=== PATIENT | female | born 1935 | race Caucasian/White ===

== ENCOUNTER → 2017-04-27 | Outpatient (CLI) | payer OTHER ==
[~2017-04-27] MED LIST: ASPI81CH6 CHEW; CHOL10008 PO; CLIN1CAP6 PO; COMMODE 3-IN-11 MIS; CPMMACHINE; DEXA4TAB PO; DOCU100C15 PO; DOCU1CAP39 PO; HYDR-3288 PO; LORTA5 PO; MAGN400T2 PO; VITA100021 SL; WALKER WHEELS/F1 MIS
== END ==
LOC: CPRE 12:02
PROVIDERS: ATTEND Orthopaedic Surgery Sports Medicine
DX: M17.11 Unilateral primary osteoarthritis, right knee (principal)

== ENCOUNTER 2017-05-07 05:25 | Inpatient (IN) | payer OTHER, MEDICARE ==
[~2017-05-07] VITALS: Ht 162.6 cm; Wt 86.4 kg
[~2017-05-07 05:25] MED LIST changes: -ASPI81CH6 CHEW; -CLIN1CAP6 PO; -COMMODE 3-IN-11 MIS; -CPMMACHINE; -DEXA4TAB PO; -DOCU100C15 PO; -DOCU1CAP39 PO; -HYDR-3288 PO; -LORTA5 PO; -WALKER WHEELS/F1 MIS
[2017-05-07] MEDS ORDERED: GENTAMICIN SULFATE 80 MG/2 ML VIAL ONE (06:10)
[2017-05-07] MEDS ORDERED: DEXAMETHASONE SOD PHOS 20 MG/5 ML VIAL ONE (06:22)
[2017-05-07] MEDS ORDERED: METOPROLOL TARTRATE 25 MG TAB PO PRN (06:30)
[2017-05-07] MEDS ORDERED: POVIDONE IODINE 7.5% SCRUB 118 ML BOTTLE TOPICAL SCH (06:30)
[2017-05-07] MEDS ORDERED: CHLORHEXIDINE GLUCONATE 4% SOLN 120 ML BTL TOPICAL SCH (06:30)
[2017-05-07] MEDS ORDERED: SODIUM CHLORID 0.9% 500 ML IV PRN (06:30)
[2017-05-07] MEDS ORDERED: CHLORHEXIDINE GLUCONATE 2 % 1 PACK (2 CLOTHS) TOPICAL PRN (06:30)
[2017-05-07] MEDS ORDERED: SODIUM CHLORIDE 0.9% IV SCH (06:30)
[2017-05-07] MEDS ORDERED: ROPIVACAINE PERI-ARTICULAR INJECTION. P-ARTICULR SCH ×5 (06:30)
[2017-05-07] MEDS ORDERED: POVIDONE IODINE 5% (ANTISEPSIS KIT) 4 APPLICATIONS EACH NARE PRN (06:30)
[2017-05-07] MEDS ORDERED: ceFAZolin 2 GM PREMIX 50 ML IV SCH (06:30)
[2017-05-07] MEDS ORDERED: TRANEXAMIC PERI-ARTICULAR 3,000 MG/NS 100 ML P-ARTICULR SCH ×2 (06:30)
[2017-05-07] MEDS ORDERED: TRANEXAMIC ACID IV SCH (06:30)
[2017-05-07] MEDS ORDERED: VANCOMYCIN 1000 MG/NS 250 ML (for <70 kg) IV SCH ×2 (06:30)
[2017-05-07] MEDS ORDERED: DEXAMETHASONE SOD PHOS 20 MG/5 ML VIAL IV PUSH SCH (06:30)
[2017-05-07] MEDS ORDERED: LACTATED RINGER'S 1000 ML IV PRN (06:30)
[2017-05-07] MEDS ORDERED: BUPIVACAINE LIPOSOME PF 1.3% 20 ML VIAL ONE (06:42)
[2017-05-07] MEDS ORDERED: ASPI81CH6 CHEW (06:51)
[2017-05-07] MEDS ORDERED: HYDR-3288 PO (06:51)
[2017-05-07] MEDS ORDERED: NALOXONE HCL 0.4 MG/ML AMP IV PUSH PRN (07:00)
[2017-05-07] MEDS ORDERED: ONDANSETRON HCL 4 MG/2 ML VIAL IVP PRN (07:00)
[2017-05-07] MEDS ORDERED: ACETAMINOPHEN/HYDROcodone 325 MG/7.5 MG TAB PO PRN (07:00)
[2017-05-07] MEDS ORDERED: MORPHINE SULFATE 4 MG/ML INJ IV PUSH PRN (07:00)
[2017-05-07] MEDS ORDERED: diphenhydrAMINE HCL 50 MG/ML VIAL IV PUSH PRN (07:00)
[2017-05-07] MEDS ORDERED: Post-op Orders (for Pharmacy) XX ONE (07:00)
[2017-05-07] MEDS ORDERED: BISACODYL 10 MG SUPP RECTAL PRN (07:00)
[2017-05-07] MEDS ORDERED: DO NOT ADM ANY ANTICOAGULANT DRUGS PRN (09:15)
[2017-05-07] MEDS: SODIUM CHLOR 0.9% 1000 ML INJ 1,000 ML IV SCH (09:30)
--- NOTE | 2017-05-07 09:41 | RADRPT ---
EXAM DATE/TIME: 05/07/2017 09:12 [place] COMPARISON: No previous studies available for comparison. INDICATIONS : Post op right total knee. MEDICAL HISTORY : None. SURGICAL HISTORY : None. ENCOUNTER: Initial ACUITY: 1 day PAIN SCORE: Non-responsive. LOCATION: Right Knee FINDINGS: There is total knee prosthesis in place well-seated with superficial stabilization device CONCLUSION: Total the prosthesis well seated Frandy Sherman MD on May 07, 2017 at 9:38 Board Certified Radiologist. This report was verified electronically.
[2017-05-07] MEDS ORDERED: *ONDANSETRON 4 MG VIAL PERIprocedural Use ONLY ONE (09:47)
--- NOTE | 2017-05-07 10:49 | MP ---
cc: PAULINA TURNER M.D. DATE OF SURGERY 05/07/2017 PREOPERATIVE DIAGNOSIS Right knee osteoarthritis. POSTOPERATIVE DIAGNOSES Right knee osteoarthritis. PROCEDURE Right total knee arthroplasty. SURGEON Dr. Paulina Turner. LLAMA FARMER CANELO Rodgers. ANESTHESIA General with a femoral nerve adductor canal block. ESTIMATED BLOOD LOSS 100 cc. COMPLICATIONS None. IMPLANTS USED DePuy Attune, size 6 posterior stabilized femoral component, size 5 rotating platform tibial baseplate, size 12 mm polyethylene tibial insert, size 35 patella. JUSTIFICATION The patient is a 81-year-old female with a history of severe end-stage osteoarthritis involving the right knee. She has severe disabling pain with standing and walking ambulation, weightbearing activities and severe pain at rest. She has failed greater than three months of nonoperative conservative treatment to include medication therapy, injections, ambulatory assisted aids, home exercise program, activity modification and weight loss. X-rays of the right knee reveal severe end-stage osteoarthritis with [id number] joint space narrowing, subchondral sclerosis, subchondral cysts, osteophyte formation with varus deformity. The patient was counseled as to the risks, benefits and alternatives of a total knee arthroplasty. The risks were discussed which include but are not limited to anesthesia, bleeding, infection, damage to nerves and blood vessels, pain, stiffness, failure of components, blood clots, pulmonary embolism and even . The patient's pain is severe. She favored the benefits over the risks. She did wish to proceed with surgery. PROCEDURE A written consent was obtained. The patient was identified, taken to the operating room and placed supine on the operating table. General anesthesia was administered as well as two grams of IV Ancef and one gram of IV vancomycin. She did receive an ultrasound-guided femoral nerve adductor canal block by the anesthesiologist. A well-padded tourniquet was placed on the right thigh. The right lower extremity was prepped and draped using isopropyl alcohol, Hibiclens solution and ChloraPrep solution. After a timeout was performed an Esmarch bandage was used to exsanguinate the right lower extremity and the tourniquet was inflated to 250 mmHg. A longitudinal incision was made over the anterior aspect of the right knee. A medial parapatellar arthrotomy was performed. The patella was everted. A patellar resection guide was used to resect 9 mm of patella. The size 35 mm guide was placed. Three drill holes were placed and a 35 mm patella trial fit well. Attention was turned to the femur where an intramedullary guide was placed. The distal femoral guide was set to remove 10 mm of distal femur 5 degrees off the anatomic valgus axis alignment. An oscillating saw was used to perform the distal femoral cut. Attention was turned to the tibia where an extramedullary tibial guide was set to remove 5 mm off the lowest portion of the medial tibial plateau. The tibial guide was pinned in place and the tibial cut was performed. A 5 mm spacer block showed full extension. Attention was turned back to the femur where the AP sizing block measured a size 6. The anterior reference 3 degree external rotation guide was used to pin a size [address] The anterior, posterior and chamfer cuts were performed. A size 6 PCL box guide was pinned in place and the PCL was box cut with an oscillating saw. The medial and lateral meniscus remnants were removed as well as bone and soft tissue debris from the posterior portion of the knee. A size 5 tibia baseplate was pinned in place and the tibia was drilled and punched. The trial components were evaluated and final components cemented in place. With the components as listed the leg could achieve full extension to 0 degrees and flexion to 140. No evidence of tibial lift-off. Varus-valgus balance appeared appropriate and symmetric and the patella was noted to track centrally. The tourniquet was deflated. Bovie cautery was used for hemostasis. The surgical wound was thoroughly irrigated with sterile saline pulse lavage antibiotic-impregnated solution. The arthrotomy incision was closed with #1 Vicryl suture, the subcutaneous layer with 2-0 Vicryl suture, and the skin was closed with Dermabond. Sterile dressing was applied. The patient tolerated the procedure well with no intraoperative complications noted. CANELO Rodgers was present during the entire procedure to include patient positioning and the procedure itself. The medical necessity of an property management assistant was indicated in this case due to the complexity of the procedure. He assisted with appropriate manipulation of the leg and also retraction of muscle, tendon, bone and neurovascular structures. He assisted with preparation of bone and also implantation of the prosthetic replacement. MD REHANA Palmer/DODIE /8:20 AM /10:29 AM
[2017-05-07] MEDS ORDERED: SODIUM CHLORIDE 0.9% 20 ML VIAL IV ONE (12:00)
[2017-05-07] MEDS ORDERED: PROPOFOL 200 MG/20 ML AMP IV ONE (12:00)
[2017-05-07] MEDS ORDERED: GLYCOPYRROLATE 1 MG/5 ML SYRINGE IV PUSH ONE (12:00)
[2017-05-07] MEDS ORDERED: LIDOCAINE HCL 1% PF 5 ML SYRINGE OTHER ONE (12:00)
[2017-05-07] MEDS ORDERED: NEOSTIGMINE 5 MG/5 ML SYRINGE IV PUSH ONE (12:00)
[2017-05-07] MEDS ORDERED: DEXAMETHASONE SOD PHOS 4 MG/ML VIAL IV ONE (12:00)
[2017-05-07] MEDS ORDERED: ONDANSETRON HCL 4 MG/2 ML VIAL IV PUSH ONE (12:00)
[2017-05-07] MEDS ORDERED: ROCURONIUM INJ 50 MG/5 ML SYRINGE IV PUSH ONE (12:00)
--- NOTE | 2017-05-07 12:45 | PD.CONS ---
HPI Service [facility] Consult Requested By Dr. Camron Calabrese Reason for Consult Medical management Primary Care Physician Howard Chatman MD Diagnoses: History of Present Illness This is a 81 year-old female with right knee pain affecting her activities of daily living secondary to osteoarthritis. Underwent arthroplasty by Dr. Camron Calabrese who requested consultation to evaluate and manage medical conditions. At this time, she has no pain after receiving nerve block. Anesthesia records reviewed she was hemodynamically stable. Received 1200 mL crystalloid, EBL 50 mL and urine output 150 mL. She has a Bernardo catheter. Patient has chronic left lower extremity edema not related to DVT. States she was recently treated for UTI no UTI symptoms. All other systems reviewed negative. Discussed with ANIMAL CRUELTY INVESTIGATORtelecommunications repairer of Systems Except as stated in HPI: all other systems reviewed are Neg Past Family Social History Allergies: Coded Allergies: No Known Allergies (Unverified Allergy, Unknown, 04/27/17) Past Medical History As previously mentioned Past Surgical History Cataract surgery Reported Medications Reported Meds & Active Scripts Active [place] (Hydrocodone-Acetaminophen) 7.5-325 mg Tab 1-2 Tab PO Q6H PRN Aspirin Low Dose (Aspirin) 81 Mg Chew 81 Mg CHEW BID 30 Days Reported Vitamin D3 (Cholecalciferol) 1,000 Unit Cap 1,000 Units PO DAILY Vitamin B-12 (Cyanocobalamin) 1,000 Mcg Subl 1,000 Mcg SL DAILY Magnesium Oxide 400 Mg Tab 400 Mg PO DAILY Family History Heart disease and lung cancer Social History Does not smoke or drink Physical Exam Vital Signs Vital Signs Date Time Temp Pulse Resp B/P (MAP) Pulse Ox O2 Delivery O2 Flow Rate FiO2 05/07/17 10:00 97.9 53 18 141/58 (85) 99 Nasal Cannula 2 05/07/17 09:45 51 15 135/60 (85) 99 Nasal Cannula 2 05/07/17 09:30 50 15 129/62 (84) 99 Nasal Cannula 2 05/07/17 09:15 47 16 131/63 (85) 99 Nasal Cannula 2 05/07/17 09:00 50 14 132/61 (84) 96 Nasal Cannula 4 05/07/17 08:58 97.7 49 14 129/62 (84) 96 Nasal Cannula 4 05/07/17 06:17 97.5 76 18 134/54 (80) 98 Physical Exam GENERAL: This is a well-nourished, well-developed patient, in no apparent distress. SKIN: No rashes, ecchymoses or lesions. Cool and dry. HEAD: Atraumatic. Normocephalic. No temporal or scalp tenderness. EYES: Pupils equal round and reactive. Extraocular motions intact. No scleral icterus. No injection or drainage. ENT: Nose without bleeding, purulent drainage or septal hematoma. Throat without erythema, tonsillar hypertrophy or exudate. Uvula midline. Airway patent. NECK: Trachea midline. No JVD or lymphadenopathy. Supple, nontender, no meningeal signs. CARDIOVASCULAR: Regular rate and rhythm without murmurs, gallops, or rubs. RESPIRATORY: Clear to auscultation. Breath sounds equal bilaterally. No wheezes , rales, or rhonchi. GASTROINTESTINAL: Abdomen soft, non-tender, nondistended. No guarding. MUSCULOSKELETAL: Extremities without clubbing, cyanosis, or edema. Right lower extremity on a CPM and left lower extremity with mild pitting edema covered with SCD and teds NEUROLOGICAL: Awake and alert. Cranial nerves II through XII intact. Motor and sensory grossly within normal limits. Five out of 5 muscle strength in all muscle groups. Normal speech. Laboratory Outpatient records reviewed unremarkable CBC, BMP and INR. CRP of 9.6. Urinalysis with WBC of 11:30 urine culture with 25,000 colonies. Chest x-ray with negative for acute cardiopulmonary disease. EKG with sinus bradycardia Assessment and Plan Assessment and Plan This is a 81 year-old female with right knee pain affecting her activities of daily living secondary to osteoarthritis. Underwent arthroplasty by Dr. Camron Calabrese who requested consultation to evaluate and manage medical conditions. At this time, she has no pain after receiving nerve block. Anesthesia records reviewed she was hemodynamically stable. Received 1200 mL crystalloid, EBL 50 mL and urine output 150 mL. She has a Bernardo catheter. Continue postoperative care with pain management with Lortab and IV morphine, DVT prophylaxis with Lovenox, physical therapy and wound care. Discontinue Bernardo catheter as soon as possible . Check CBC to monitor for anemia secondary to acute blood loss Patient has chronic left lower extremity edema not related to DVT. Recently treated for UTI no UTI symptoms. Discussed Condition With Patient and Harry Velázquez MD May 07, 2017 12:45
[2017-05-07 14:00] VITALS: BP 144/66; PULSE 67; RESP 18; TEMP 95.7; O2SAT 97
[2017-05-07 20:00] VITALS: BP 148/59; PULSE 70; RESP 16; TEMP 98.3; O2SAT 95
[2017-05-07] MEDS ORDERED: ZOLPIDEM TARTRATE 5 MG TAB PO PRN (21:00)
[2017-05-07] MEDS: ENOXAPARIN SODIUM 30 MG/0.3 ML SYRINGE SQ SCH (21:10)
[2017-05-07 23:59] VITALS: BP 139/82; PULSE 72; RESP 16; TEMP 97.7; O2SAT 94
[2017-05-08] MEDS: SODIUM CHLOR 0.9% 1000 ML INJ 1,000 ML IV SCH ×3 (03:44→22:48)
[2017-05-08 05:00] VITALS: BP 140/63; PULSE 73; RESP 18; TEMP 96.7; O2SAT 96
[2017-05-08] MEDS: ACETAMINOPHEN/HYDROcodone 325 MG/7.5 MG TAB PO PRN ×2 (05:32→14:39)
[2017-05-08 07:36] LABS: HEMATOCRIT 29.4 % (35.0-46.0); HEMOGLOBIN 9.8 GM/DL (11.6-15.3); MEAN CELL VOLUME 90.4 FL (80.0-100.0); MEAN CORPUSCULAR HEMOGLOBIN 30.2 PG (27.0-34.0); MEAN CORPUSCULAR HGB CONC 33.4 % (32.0-36.0); MEAN PLATELET VOLUME 8.2 FL (7.0-11.0); PLATELET COUNT 229 TH/MM3 (150-450); RED BLOOD COUNT 3.25 MIL/MM3 (4.00-5.30); RED CELL DISTRIBUTION WIDTH 15.1 % (11.6-17.2); WHITE BLOOD COUNT 12.8 TH/MM3 (4.0-11.0)
[2017-05-08 07:39] VITALS: BP 129/55; PULSE 64; RESP 18; TEMP 96.2; O2SAT 97
[2017-05-08 07:55] LABS: BICARBONATE 25.7 MEQ/L (21.0-32.0); CALCIUM 8.6 MG/DL (8.5-10.1); CREATININE 0.33 MG/DL (0.50-1.00)
--- NOTE | 2017-05-08 08:37 | PD.ORT.PN ---
Subjective Post Op Day #: 1 Subjective Remarks pain controlled. doing well. Objective Vitals Vital Signs Date Time Temp Pulse Resp B/P (MAP) Pulse Ox O2 Delivery O2 Flow Rate FiO2 05/08/17 07:39 96.2 64 18 129/55 (79) 97 05/08/17 05:00 96.7 73 18 140/63 (88) 96 05/07/17 23:59 97.7 72 16 139/82 (101) 94 05/07/17 21:15 Room Air 05/07/17 20:00 98.3 70 16 148/59 (88) 95 05/07/17 14:00 95.7 67 18 144/66 (92) 97 05/07/17 13:52 Nasal Cannula 2.00 05/07/17 13:00 60 16 132/60 (84) 100 Nasal Cannula 2 05/07/17 12:00 58 18 140/60 (86) 99 Nasal Cannula 2 05/07/17 11:00 55 18 142/60 (87) 99 Nasal Cannula 2 05/07/17 10:00 97.9 53 18 141/58 (85) 99 Nasal Cannula 2 05/07/17 09:45 51 15 135/60 (85) 99 Nasal Cannula 2 05/07/17 09:30 50 15 129/62 (84) 99 Nasal Cannula 2 05/07/17 09:15 47 16 131/63 (85) 99 Nasal Cannula 2 05/07/17 09:00 50 14 132/61 (84) 96 Nasal Cannula 4 05/07/17 08:58 97.7 49 14 129/62 (84) 96 Nasal Cannula 4 I/O 05/07/17 05/07/17 05/07/17 05/08/17 05/08/17 05/08/17 07:00 15:00 23:00 07:00 15:00 23:00 Intake Total 1420 ml 240 ml 240 ml Output Total 3475 ml 700 ml 1725 ml Balance -2055 ml -460 ml -1485 ml Intake Oral 120 ml 240 ml 240 ml IV Total 1100 ml Other 200 ml Output Urine Total 425 ml 700 ml 1725 ml Estimated Blood Loss 50 ml Other 3000 ml # Bowel Movements 0 Result Diagram: 05/08/17 0620 05/08/17 0620 Objective Remarks in bed, nad dressing c/d/i neg homans nvi Assessment & Plan Ortho Post Op Day #: 1 Problem List: Assessment and Plan s/p R TKA wbat ok to maintain dressing unless saturated lovenox, d/c on asa 81 d/c planning to snf - cleared when authorized by insurance rx in chart f/up dr. stewart 2 weeks Cmaron Banks May 08, 2017 08:37
--- NOTE | 2017-05-08 08:39 | HHI.DCPOC ---
Discharge Care Plan Diagnosis: (1) Primary localized osteoarthrosis, lower leg Your Health Problems Are: Difficulty with ADL Goals to Promote Your Health * To prevent worsening of your condition and complications * To maintain your health at the optimal level Directions to Meet Your Goals Take your medications as prescribed Follow your dietary instruction Follow activity as directed Keep your appointments as scheduled Take your immunizations and boosters as scheduled If your symptoms worsen call your PCP, if no PCP go to Urgent Care Center or Emergency Room Smoking is Dangerous to Your Health. Avoid second hand smoke Call the 24-hour hour crisis hotline for domestic abuse at Camron Banks May 08, 2017 08:39
[2017-05-08] MEDS ORDERED: WALKER WHEELS/F1 MIS (08:41)
[2017-05-08] MEDS ORDERED: CPMMACHINE (08:41)
[2017-05-08] MEDS ORDERED: COMMODE 3-IN-11 MIS (08:41)
--- NOTE | 2017-05-08 11:34 | HHI.PR ---
Subjective Remarks Orthopedics has cleared this patient and patient is medically cleared for discharge today. The status post right total knee and doing well. No complaints expressed from the patient. Objective Vital Signs Date Time Temp Pulse Resp B/P (MAP) Pulse Ox O2 Delivery O2 Flow Rate FiO2 05/08/17 07:39 96.2 64 18 129/55 (79) 97 05/08/17 05:00 96.7 73 18 140/63 (88) 96 05/07/17 23:59 97.7 72 16 139/82 (101) 94 05/07/17 21:15 Room Air 05/07/17 20:00 98.3 70 16 148/59 (88) 95 05/07/17 14:00 95.7 67 18 144/66 (92) 97 05/07/17 13:52 Nasal Cannula 2.00 05/07/17 13:00 60 16 132/60 (84) 100 Nasal Cannula 2 05/07/17 12:00 58 18 140/60 (86) 99 Nasal Cannula 2 I/O 05/07/17 05/07/17 05/07/17 05/08/17 05/08/17 05/08/17 07:00 15:00 23:00 07:00 15:00 23:00 Intake Total 1420 ml 240 ml 240 ml Output Total 3475 ml 700 ml 1725 ml Balance -2055 ml -460 ml -1485 ml Intake Oral 120 ml 240 ml 240 ml IV Total 1100 ml Other 200 ml Output Urine Total 425 ml 700 ml 1725 ml Estimated Blood Loss 50 ml Other 3000 ml # Bowel Movements 0 Result Diagram: 05/08/17 0620 05/08/17 0620 Objective Remarks GENERAL: NAD, A&Ox3 HEAD: Normocephalic. NECK: Supple, trachea midline. No lymphadenopathy. EYES: No scleral icterus. No injection or drainage. CARDIOVASCULAR: Regular rate and rhythm without murmurs, gallops, or rubs. RESPIRATORY: Breath sounds equal bilaterally. No accessory muscle use. GASTROINTESTINAL: Abdomen soft, non-tender, nondistended. MUSCULOSKELETAL: No cyanosis, or edema. Wound at right knee. SKIN: Warm and dry. NEURO: No focal neurological deficitis. A/P Problem List: (1) Primary localized osteoarthrosis, lower leg ICD Code: M17.10 - Unilateral primary osteoarthritis, unspecified knee Assessment and Plan 81-year-old male admitted secondary to osteoarthritis for surgery right knee Status post right knee arthroplasty Doing well postop Orthopedics has cleared this patient for discharge Medically stable for discharge Continue pain treatments Continue PT Follow-up with orthopedics as an outpatient Labs reviewed, hemoglobin stable Discharge planning Medically Clear for discharge today Problem Qualifiers (1) Primary localized osteoarthrosis, lower leg: Qualified Codes: M17.11 - Unilateral primary osteoarthritis, right knee Moise Luna MD May 08, 2017 11:34
[2017-05-08] MEDS ORDERED: DOCU100C15 PO (11:35)
[2017-05-08 11:36] VITALS: BP 120/63; PULSE 70; RESP 18; TEMP 96.1; O2SAT 98
[2017-05-08 15:46] VITALS: BP 116/59; PULSE 75; RESP 18; TEMP 96.5; O2SAT 99
[2017-05-08 18:07] VITALS: O2SAT 99
[2017-05-08 20:00] VITALS: BP 145/68; PULSE 81; RESP 20; TEMP 97.1; O2SAT 96
[2017-05-08] MEDS: MULTIVITAMINS/MINERALS THERAPEUTIC TAB PO SCH (20:32)
[2017-05-08] MEDS: DOCUSATE SODIUM 100 MG CAP PO SCH (20:32)
[2017-05-08] MEDS: ENOXAPARIN SODIUM 30 MG/0.3 ML SYRINGE SQ SCH (20:33)
[2017-05-09] VITALS: BP 144/74; PULSE 92; RESP 20; TEMP 97.1; O2SAT 96
[2017-05-09 04:00] VITALS: BP 161/74; PULSE 88; RESP 20; TEMP 97; O2SAT 96
[2017-05-09] MEDS: ACETAMINOPHEN/HYDROcodone 325 MG/7.5 MG TAB PO PRN ×2 (06:04→14:23)
--- NOTE | 2017-05-09 07:25 | MD ---
cc: PAULINA TURNER ADMISSION DATE: 05/07/2017 DISCHARGE DATE: [place] Visit Search.Discharge Date ADMITTING DIAGNOSIS Severe degenerative osteoarthritis right knee. DISCHARGE DIAGNOSIS Severe degenerative osteoarthritis right knee. HISTORY OF PRESENT ILLNESS Ms. Amor is a 81-year-old female who presented to the [facility] for evaluation by Dr. Paulina Turner regarding severe and progressive right knee pain. The patient states currently her right knee pain is a severe aching sensation aggravated by weightbearing activities. She notes that she has difficulty with ambulation due to the pain. She has no alleviating factors, although in the past, she has tried medications, bracing, physical therapy, home exercise program and multiple injections without relief of symptoms. She does have x-ray evidence of severe degenerative osteoarthritis of the right knee. While in the office, the patient was counseled on her diagnosis and treatment options. The risks, benefits, and indications were all discussed. The patient did elect to proceed with surgical intervention to include a right total knee arthroplasty. Date of surgery 05/07/2017 right total knee arthroplasty. Postop after surgery, the patient admitted to [facility] where she received appropriate medical management, pain control, DVT prophylaxis, as well as physical therapy. Discharge. Once being discharged from the hospital, the patient is cleared to go to a half-way facility. She may weight-bear as tolerated. She has been instructed on appropriate wound care management. She has been provided prescriptions for pain control, as well as DVT prophylaxis medication. She has also been provided a follow-up appointment in approximately two weeks from her date of surgery. The patient is in stable condition and clinically doing well. The patient is cleared for discharge. Dictated by: Fernie Banks PA-C MD REHANA Palmer/AURELIO /8:39 AM /7:16 AM
--- NOTE | 2017-05-09 07:33 | PD.ORT.PN ---
Subjective Post Op Day #: 2 Subjective Remarks pain controlled. feeling better. ready to go to snf. Objective Vitals Vital Signs Date Time Temp Pulse Resp B/P (MAP) Pulse Ox O2 Delivery O2 Flow Rate FiO2 05/09/17 04:00 97.0 88 20 161/74 (103) 96 05/09/17 00:00 97.1 92 20 144/74 (97) 96 05/08/17 20:35 Room Air 05/08/17 20:00 97.1 81 20 145/68 (93) 96 05/08/17 18:07 99 21 05/08/17 15:46 96.5 75 18 116/59 (78) 99 05/08/17 11:36 96.1 70 18 120/63 (82) 98 05/08/17 07:39 96.2 64 18 129/55 (79) 97 I/O 05/08/17 05/08/17 05/08/17 05/09/17 05/09/17 05/09/17 07:00 15:00 23:00 07:00 15:00 23:00 Intake Total 340 ml 900 ml 280 ml 220 ml Output Total 1725 ml 500 ml 800 ml Balance -1385 ml 900 ml -220 ml -580 ml Intake Oral 240 ml 900 ml 280 ml 220 ml IV Total 100 ml Output Urine Total 1725 ml 500 ml 800 ml # Voids 2 # Bowel Movements 0 0 Result Diagram: 05/08/17 0620 05/08/17 0620 Objective Remarks in bed, nad dressing c/d/i no erythema, no drainage neg homans nvi Assessment & Plan Ortho Post Op Day #: 2 Problem List: Assessment and Plan s/p R TKA wbat ok to maintain dressing unless saturated lovenox, d/c on asa 81 PT d/c planning to snf - cleared when authorized by insurance rx in chart f/up dr. stewart 2 weeks Camron Banks May 09, 2017 07:33
[2017-05-09 08:00] VITALS: BP 133/56; PULSE 78; RESP 16; TEMP 96.9; O2SAT 94
[2017-05-09] MEDS: MULTIVITAMINS/MINERALS THERAPEUTIC TAB PO SCH (09:20)
[2017-05-09] MEDS: DOCUSATE SODIUM 100 MG CAP PO SCH (09:20)
[2017-05-09 09:30] LABS: HEMATOCRIT 27.5 % (35.0-46.0); HEMOGLOBIN 9.3 GM/DL (11.6-15.3); MEAN CELL VOLUME 90.5 FL (80.0-100.0); MEAN CORPUSCULAR HEMOGLOBIN 30.5 PG (27.0-34.0); MEAN CORPUSCULAR HGB CONC 33.6 % (32.0-36.0); PLATELET COUNT 220 TH/MM3 (150-450); RED BLOOD COUNT 3.04 MIL/MM3 (4.00-5.30); RED CELL DISTRIBUTION WIDTH 15.1 % (11.6-17.2); WHITE BLOOD COUNT 8.8 TH/MM3 (4.0-11.0)
[2017-05-09 10:04] LABS: BICARBONATE 29.2 MEQ/L (21.0-32.0); CALCIUM 8.2 MG/DL (8.5-10.1); CREATININE 0.32 MG/DL (0.50-1.00)
[2017-05-09 10:56] VITALS: O2SAT 94
== END 2017-05-09 14:29 | DRG 470 ==
LOC: HSDI 05:25 → N06B 13:51
PROVIDERS: ADMIT Orthopaedic Surgery Sports Medicine; ATTEND Orthopaedic Surgery Sports Medicine
PROC: 3E0T3BZ Introduction of Anesthetic Agent into Peripheral Nerves and Plexi, Percutaneous Approach (ICD-10-PCS; 2017-05-07)
PROC: 0SRC0J9 Replacement of Right Knee Joint with Synthetic Substitute, Cemented, Open Approach (ICD-10-PCS; principal; 2017-05-07 06:42)
DX: M17.11 Unilateral primary osteoarthritis, right knee (principal); R60.0 Localized edema
CPT/HCPCS: 73560; 80048; 85027; 86850; 86900; 86901; 94150; C1776; C9290; J0690; J0735; J1100; J1580; J1650; J1885; J2405; J2710; J2795; J3010; J3370; J7030; J7050; J7120; L1830